=== PATIENT | female | born 1990 | race Caucasian/White ===

== ENCOUNTER 2016-11-09 13:33 | Inpatient (IN) | payer MEDICAID ==
[~2016-11-09] VITALS: Ht 157.5 cm; Wt 72.0 kg
[~2016-11-09 13:33] MED LIST: FLO4 PO
--- NOTE | 2016-11-09 14:25 | NUR ---
26Y/O FEMALE AMBULATED TO BED 2A REPORTING LLQ AND LEFT FLANK PAIN DESCRIBED PRESSURE LIKE AND CONSTANT WITH ONE EPISODE OF VOMITING COMPONENT LAB TECH. RECENT CHILD ONE MONTH AGO, DENIES VAGINAL BLEEDING AT THIS TIME. DENIES DYSURIA OR FREQUENCY. A/O X4. BREATHING EVEN AND UNLABORED. PENDING MSE.
[2016-11-09 15:09] LABS: CALCIUM 9.2 mg/dL (8.5-10.1); CARBON DIOXIDE 26.1 mmol/L (21-32); CHLORIDE SERUM 105 mmol/L (98-107); CREATININE SERUM 0.8 mg/dL (0.6-1.0); GFR1 > 60 mL/min; GLUCOSE SERUM 116 mg/dL (74-106); PLATELET COUNT 312 x10^3mcL (130-400); POTASSIUM SERUM 3.5 mmol/L (3.5-5.1); RED CELL DISTRIBUTION WIDTH 13.8 % (11.5-14.5); SODIUM SERUM 142 mmol/L (136-145)
--- NOTE | 2016-11-09 15:10 | NUR ---
PT RESTING IN POSITION OF COMFORT. CALL LIGHT IN REACH. APPEARS MORE COMFORTABLE.
[2016-11-09 15:11] LABS: BASOPHIL % 0 % (0-2)
[2016-11-09 15:19] LABS: ALBUMIN 3.8 g/dL (3.4-5.0); ALKALINE PHOSPHATASE 92 U/L (46-116); ALT/SGPT 58 U/L (14-59); AMYLASE 34 U/L (25-115); AST/SGOT 32 U/L (15-37); BILIRUBIN TOTAL 0.4 mg/dL (0.20-1.00); LIPASE 91 IU/L (73-393)
--- NOTE | 2016-11-09 15:40 | NUR ---
PAIN IMPROVED AFTER MEDICATION. RESTING IN BED. CALL LIGHT IN REACH.
[2016-11-09 16:02] LABS: UA SPECIFIC GRAVITY >=1.030 (1.005-1.035); microscopic required? YES; urine erythrocyte TRACE (NEGATIVE)
[2016-11-09] MEDS ORDERED: PRENATAL LOW IR1 TA1 PO (16:27)
--- NOTE | 2016-11-09 16:59 | NUR ---
REPORT GIVEN TO MERON WU FOR PT TO GO TO BED 252B
[2016-11-09 17:28] VITALS: BP 125/76
--- NOTE | 2016-11-09 17:33 | NUR ---
RECEIVED PT FROM ED VIA PAULA. ORIENTED PT TO ROOM AND SURROUNDINGS. IV NOTED TO DOMO CRAIG AND DEVEN. TELE 41 PLACED ON PT READING NSR. INSTRUCTED PT ON THE USE OF CALL LIGHT FOR ASSISTANCE. ENDORSED PT TO PRIMARY NURSE MERON
--- NOTE | 2016-11-09 17:45 | NUR ---
PATIENT IS SITTING UP IN BED. UP TO THE BATHROOM TO VOID. DENIES ANY PAIN OR DISCOMFORT AT THIS TIME. NS BOLUS INFUSING WELL ORDERED. IV SITE PATENT. SCD'S IN PLACE. CALL LIGHT WITHIN REACH AND PT INSTRUCTED ON USE. TELE 41 SA. NO ACUTE DISTRESS NOTED. WILL CONTINUE TO MONITOR.
[2016-11-09 17:47] LABS: MAGNESIUM 2.1 mg/dL (1.8-2.4); PHOSPHOROUS 4.1 mg/dL (2.5-4.9)
[2016-11-09 17:53] LABS: AMPHETAMINE QUAL UR NONE DETECTED (NEG <=1000)
[2016-11-09 17:56] LABS: FREE T4 0.84 ng/dL (0.76-1.46); FREE THYROXINE INDEX 2.7 ug/dL (1.4-4.5); T4(THYROXINE) 8.1 ug/dL (4.7-13.3)
[2016-11-09 17:58] LABS: T3 TOTAL 1.34 ng/mL
--- NOTE | 2016-11-09 18:13 | NUR ---
PATIENT C/O LEFT FLANK PAIN 7/10 ON THE PAIN SCALE. MEDICATED WITH MS 2MG IV BY JAX WU ORDERED. WILL MONITOR FOR EFFECT.
--- NOTE | 2016-11-09 18:45 | NUR ---
PATIENT IS IN BED, APPEARS TO BE RESTING WELL. WILL ENDORSE TO NOC NURSE.
--- NOTE | 2016-11-09 19:12 | NUR ---
PATIENT C/O HAVING A H/A NOTED TO BE CHILLING. TEMP 101.4. TYLENOL 650MG PO GIVEN AND COOLING MEASURES STARTED. WILL ENDORSE TO NOC NURSE.
--- NOTE | 2016-11-09 19:41 | NUR ---
RECEIVED PT FROM PREVIOUS SHIFT. PT A/OX4. DENIES PAIN. DENIES SOB ON RA. ICEPACKS UNDER GURJIT UPPER EXTREMITIES AND TYLENOL GIVEN FOR ELEVATED TEMP. PT RECEIVING BOLUS TO LAC, PATENT AND INFUSING WELL WITH NO S/S OF INFILTRATION. CALL LIGHT WITHIN REACH, BED IN LOW POSITION. WILL CONTINUE TO MONITOR.
--- NOTE | 2016-11-09 21:21 | NUR ---
DR VEGA INFORMED OF BP 91/48, MAP 62, HR 120, AND TEMP 102.[address] VEGA STATES HE WILL INFORM CONSULTING PHYSICIAN DR LEWIS. WILL CONTINUE TO MONITOR.
[2016-11-09 21:29] VITALS: BP 91/48
--- NOTE | 2016-11-09 22:24 | NUR ---
REPORT GIVEN TO SHANNON RN IN ICU FOR TRANSFER. PT VERBALIZES UNDERSTANDING OF NEED TO TRANSFER TO HIGHER LEVEL OF CARE. DR LEWIS AT BEDSIDE TO EXPLAIN PROCEDURE.
--- NOTE | 2016-11-09 22:35 | NUR ---
RECEIVED PATIENT FROM [facility], REPORT GIVEN BY MARIA D ALBRECHT RN. PATIENT IS ALERT AND ORIENTED, NOT IN DISTRESS, WITH DISCOMFORTS BUT NOT IN SEVERRE PAIN, SKIN WARM TO TOUCH, T 101.4/ ORALLY. SEPSIS CHECKLIST INITIATED.
[2016-11-09 22:40] VITALS: BP 93/53
--- NOTE | 2016-11-09 23:36 | NUR ---
DR. VEGA INFORMED OF RECENT LACTIC ACID 3.4. MD WILL ORDER ANOTHER LACTIC ACID DRAW.
[2016-11-10] VITALS (17 sets, daily range): BP systolic 93–120; BP diastolic 48–84; Ht 157.5 cm; Wt 72.0 kg
--- NOTE | 2016-11-10 00:43 | NUR ---
ASLEEP AT THIS TIME, EASILY AROUSABLE. RESP. EVEN AND UNLABORED. NO DISTRESS NOTED. SR ON THE MONITOR. NO COMPLAINTS NOTED AT THIS TIME. DR VEGA AT THE BEDSIDE.CONSENT FOR CENTRAL LINE INSERTION OBTAINED FROM PT. FOR INSERTION. TEMP. 100.1 ORALLLY. WILL CONTINUE TO MONITOR.
--- NOTE | 2016-11-10 01:00 | NUR ---
COMPLAINED OF HEADACHE. TEMP. 100.1, MEDICATED WITH TYLENOL 650MG PO ORDERED. WILL CONTINUE TO MONITOR.
--- NOTE | 2016-11-10 01:35 | NUR ---
DR VEGA AT THE BEDSIDE, INSERTING CENTRAL LINE. WILL CONTINUE TO MONITOR.
--- NOTE | 2016-11-10 01:37 | NUR ---
NS 1000ML IV BOLUS INFUSING AT THIS TIME. WILL CONTINUE TO MONITOR.
--- NOTE | 2016-11-10 02:11 | NUR ---
CENTRAL LINE INSERTED BY DR VEGA. X-RAY ORDERED TO CONFIRM PLACEMENT. PT AWKE, ALERT AND ORIENTED. VSS . DENIES CHEST PAIN OR ANY DISCOMFORT AT THIS TIME. WILL CONTINUE TO MONITOR.
--- NOTE | 2016-11-10 03:21 | NUR ---
TEMP. SHOWS 102.2 AT THIS TIME, PT REFUSED COOLING MEASURES , TYLENOL PO ALREADY GIVEN. DR VEGA AWARE.ICE CHIPS GIVEN PER PT,S REQUEST. 4TH BAG OF NS (1000ML) BOLUS COMPLETED. WILL CONTINUE TO MONITOR.
--- NOTE | 2016-11-10 04:26 | NUR ---
IVF CONNECTED TO RIJ PER ORDER. IVF, NS AT 150ML/HR INFUSING AT THIS TIME. SLEEPING AT THIS TIME, EASILY AROUSABLE. RESP. EVEN AND UNLABORED. NO DISTRESS MOTED. WILL CONTINUE TO MONITOR.
[2016-11-10 05:25] LABS: CALCIUM 7.7 mg/dL (8.5-10.1); CARBON DIOXIDE 19.8 mmol/L (21-32); CHLORIDE SERUM 110 mmol/L (98-107); CREATININE SERUM 0.7 mg/dL (0.6-1.0); GFR1 > 60 mL/min; GLUCOSE SERUM 110 mg/dL (74-106); POTASSIUM SERUM 3.2 mmol/L (3.5-5.1); SODIUM SERUM 142 mmol/L (136-145)
[2016-11-10 05:27] LABS: ALBUMIN 2.8 g/dL (3.4-5.0)
[2016-11-10 05:35] LABS: BASOPHIL % 0.1 % (0-2); PLATELET COUNT 228 x10^3mcL (130-400); RED CELL DISTRIBUTION WIDTH 13.6 % (11.5-14.5)
--- NOTE | 2016-11-10 06:28 | NUR ---
TEMP SHOWS 101.6 AT THIS TIME, PT REFUSED COOLING MEASURES. TYLENOL 650MG PO GIVEN. K+ 3.2, KCL 40MEQ PO GIVEN ORDERED. DENIES PAIN OR ANY DISCOMFORT AT THIS TIME. IVF, NS AT 150ML/HR, INFUSING VIA RIJ TRIPLE LUMEN. KEPT COMFORTABLE. NPO EXCEPT MEDS MAINTAINED. SR/ST ON THE MONITOR, DENIES CHEST PAIN. WILL CONTINUE TO MONITOR.
--- NOTE | 2016-11-10 07:17 | NUR ---
VOIDING FREELY. URINE STRAINED FOR STONES, NONE NOTED. REPORT GIVEN TO SEGUNDO WU. ALL QUESTIONS ANSWERED AND ALL CONCERNS ADDRESSED.
--- NOTE | 2016-11-10 07:27 | NUR ---
RECEIVED PATIENT FROM SEISMOGRAPH RECORDER NURSE PATIENT IS ALERT AND ORIENTED DENIES PAIN OR DISCOMFORT RIGHT IJ NOTED NO S/S OF INFILTRATION NOTED PATIENT IS AMBULATORY AND ABLE TO USE BEDSIDE COMMODE URINE BEING STRAINED PATIENT TO HAVE POSSIBLE CYSTOSCOPY, POSSIBLE URETERSCOPY, POSSIBLE LASER LITHOTRIPSY AND POSSIBLE URETER STENT PLACEMENT. CONSENT IS IN CHART BUT NOT SIGNED PATIENT NEEDS TO HAVE PROCEDURE EXPLAINED WILL CONTINUE TO MONITOR
--- NOTE | 2016-11-10 09:43 | NUR ---
PATIENT RESTING COMFORTABLY IN BED PATIENT ABLE TO AMBULATE PATIENT DENIES PAIN OR DISCOMFORT
--- NOTE | 2016-11-10 11:15 | NUR ---
WITH TERESITA RN NEPHROSTOMY TUBE PLACEMENT EXPLAINED TO PATIENT PATIENT CONSENTED AND CONSENT SIGNED AND PLACED IN CHART
--- NOTE | 2016-11-10 11:29 | NUR ---
PATIENT TO BE TRANSFER TO ROOM REPORT GIVEN TO MARCEL WU PATIENT TO BE TRANSPORTED VIA WHEELCHAIR V/S STABLE PATIENT DENIES PAIN OR DISCOMFORT ALL QUESTIONS ANSWERED NO CONCERNS NOTED
--- NOTE | 2016-11-10 11:45 | NUR ---
RECEIVED PT TO . ORIENT TO ROOM, MADE COMFORTABLE. VITAL SIGNS TAKEN. TEMP 103 TEMPORAL. COOLING MEASURES BEGUN. WILL MED WITH TYLENOL ORDERED. OB=[id number]. RESP 18 EVEN. BREATH SOUNDS DIMINISHED. TELE #17 SINUS TACH. DENIES CHEST DISCOMFORT. ABD SOFT, BOWEL TONES PRESENT. LBM=5-2-17. VOIDING QS. CONTINUE TO STRAIN ALL URINE. NO EDEMA. PULSES PRESENT. SCD IN PLACE. IV RIJ IN PLACE WITH IVF NORMAL SALINE 150CC/HR. REMAINS NPO FOR LEFT NEPHROSTOMY TUBE PLACEMENT. SIDE RAILS UP X2. CALL LIGHT IN REACH.
--- NOTE | 2016-11-10 12:45 | NUR ---
MED WITH TYLENOL 650MG PO ORDERED FOR TEMP. C/O FLANK DISCOMFORT 02/17 ACHING. MED WITH MORPHINE SULFATE 2MG IVP ORDERED.
--- NOTE | 2016-11-10 13:00 | NUR ---
REPORTS "PAIN BETTER NOW 09/17."
--- NOTE | 2016-11-10 13:20 | NUR ---
FREIDA IDENTIFIED. PT UP FOR CHRISTINE BATH. IV CONVERTED TO SALINE LOCK. TRANSFERRED VIA BED AT THIS TIME FOR LEFT NEPHROSTOMY TUBE PLACEMENT.
--- NOTE | 2016-11-10 14:45 | NUR ---
RETURNED TO ROOM VIA BED AWAKE AND ALERT. REPORTS "PAIN IS BETTER DOWN TO 2/10 LOWER BACK." DRESSING CDI LEFT FLANK WITH NEPHROSTOMY TUBE DRAINS RED COLOR DRAINAGE TO GRAVITY DRAINAGE BAG. IVF RESUMED NORMAL SALINE 150CC/HR. SCD APPLIED. CALL LIGHT IN REACH. WILL CHECK WITH MD FOR DIET ORDER. TEMP 97.8 TEMPORAL, ZW=802, RESP 18, JJ=390/56. PULSE OX 94% RA. CALL LIGHT IN REACH. WILL CONTINUE TO MONITOR.
--- NOTE | 2016-11-10 17:00 | NUR ---
C/O LEFT FLANK PAIN 02/17. MED WITH MORPHINE SULFATE 2MG IVP ORDERED. TEMP 101.1. COOLING MEASURES IN PLACE. DRESSING CDI LEFT FLANK. OUTPUT 300CC SINCE PLACEMENT COMPLETED. IV CONTINUES PATENT 150CC/HR.
--- NOTE | 2016-11-10 17:20 | NUR ---
REPORTS "PAIN BETTER /10." FULL LIQ DIET SERVED. ABLE TO DRINK GRAPE JUICE BUT BECAME NAUSEATED AND THREW UP. STATES "TO SWEET. MY STOMACH FEELS BETTER NOW." CALL LIGHT IN REACH.
--- NOTE | 2016-11-10 19:51 | NUR ---
SHIFT REASSESSMENT DONE.PATIENTUP IN RESTROOM AT START OF SHIFT,SAYS SHE HAD BM.ALERT AND ORIENTED.IS ENCOURAGED,JUST HAD L NEPHROSTOMY INSERTION TODAY,BUT SATS SHE STILL VOID,BAG WAS BLOOD Y FROM DAY SHIFT,CLEARING NOW/PINKISH.NS AT 100 CC/ HOUR.RIJ.3 LUMEN.TELE 17 SR/ST.CALL LIGHT IN REACH.
--- NOTE | 2016-11-10 20:52 | NUR ---
PM MEDS GIVEN,PATIENT TEMP 102.4,PATIENT ON ATB,COOLING MEASURES GIVEN.WILL CHECKED FOR TYLENOL.
--- NOTE | 2016-11-10 20:58 | NUR ---
PATIENT TYLENOL NOT DUE YET,GIVEN TORADOL PO AT THIS TIME.
--- NOTE | 2016-11-11 01:47 | NUR ---
PATIENT LEFT NEPHROSTOMY EMPTIED WITH 600 CC PINKISH URINE.ALSO VOIDING PINKISH URINE.400 CC.WILL TOTAL IT AT THE END OF THE SHIFT.
--- NOTE | 2016-11-11 04:23 | NUR ---
PATIENT TEMP RECHECKED AT THIS TIME 99.2,COOLING MEASURES WAS USED LAST NIGHT.CONTINOUS ON ANTIBIOTIC,IVF AT 150 CC/ HOUR,DRINKING WATER WELL.
--- NOTE | 2016-11-11 04:25 | NUR ---
PAIN MED WAS GIVEN AT 0222,SAYS PAIN IS 8/10.DR BADILLO UPDATED ABOUT PATIENT FEVER,NOW 99.2,LAST NOC WAS NOT AWARE OF IT.
--- NOTE | 2016-11-11 04:26 | NUR ---
PATIENT UP IN RESTROOM,HEART RATE ST,NO SYMPTOMS.URINE STILL BEING STRAINED.
[2016-11-11 04:32] VITALS: BP 118/66
--- NOTE | 2016-11-11 05:53 | NUR ---
TELE 17 DISCONTINUED,PATIENT MED SURG STATUS.
[2016-11-11 06:39] LABS: CALCIUM 8.3 mg/dL (8.5-10.1); CARBON DIOXIDE 19.9 mmol/L (21-32); CHLORIDE SERUM 109 mmol/L (98-107); CREATININE SERUM 0.7 mg/dL (0.6-1.0); GFR1 > 60 mL/min; GLUCOSE SERUM 84 mg/dL (74-106); POTASSIUM SERUM 3.2 mmol/L (3.5-5.1); SODIUM SERUM 143 mmol/L (136-145)
[2016-11-11 06:54] LABS: BASOPHIL % 0.2 % (0-2); PLATELET COUNT 190 x10^3mcL (130-400); RED CELL DISTRIBUTION WIDTH 14.5 % (11.5-14.5)
--- NOTE | 2016-11-11 07:56 | NUR ---
PT C/O LEFT FLANK DISCOMFORT "ACHING PAIN 12/18." MED WITH TORADOL 10MG PO ORDERED. WILL CONTINUE TO MONITOR.
--- NOTE | 2016-11-11 08:00 | NUR ---
AWAKE AND ALERT. TEMP 102.2 ORAL. RESP 18 EVEN. BREATH SOUNDS CLEAR. NO COUGH OR SOB. PULSE OX 97% RA. ABD SOFT, BOWEL TONES PRESENT. LEFT FLANK DRESSING CDI WITH LEFT NEPHROSTOMY TUBE PATENT DRAINING PALE REDDISH COLOR DRAINAGE. CONTINUE TO STRAIN ALL URINE FOR STONE. UP TO BATHROOM VOIDED 600CC EAMON REDDISH COLOR URINE. STRAIN ALL UX FOR STONE. REPORTS "HURTS ABOUT 6/10 RIGHT NOW." NO EDEMA. PULSES PRESENT. SCD IN PLACE. RIJ IN PLACE WITH IVF NORMAL SALINE 150CC/HR. SIDE RAILS UP X2. CALL LIGHT IN REACH.
--- NOTE | 2016-11-11 08:20 | NUR ---
DR HARMON AND MEDICAL TEAM IN ON ROUNDS. DISCUSSED KIDNEY STONE, PURPOSE OF NEPHROSTOMY TUBE AND TO CONTINUE TO STRAIN UX FOR STONE. CONTINUE IV ANTIBIOTICS ORDERED. UPDATED WITH ORAL TEMP 102.2. PT VERBALIZED UNDERSTANDING.
--- NOTE | 2016-11-11 08:30 | NUR ---
PT CONTINUES TO EXPRESS THAT HAS DISCOMFORT LEFT FLANK AREA "ACHING 02/17." MED WITH MORPHINE SULFATE 2MG IVP ORDERED.
--- NOTE | 2016-11-11 09:00 | NUR ---
PT REPORTS "FEELING BETTER, PAIN DOWN TO 2/10." GENT TROUGH LEVEL DRAWN.
--- NOTE | 2016-11-11 10:00 | NUR ---
GENT 80MG IVPB STARTED. PEAK ORDERED FOR 1100. PT SLEEPING AT THIS TIME.
[2016-11-11 10:32] VITALS: BP 116/64
--- NOTE | 2016-11-11 12:00 | NUR ---
PT RESTING. DENIES NEED FOR PAIN MED AT THIS TIME. GENT TROUGH LEVEL 0.6, PEAK=3.5. NO CHANGE IN GENT DOSE TO CONTINUE IV Q8HR. CONTINUE TO EMPTY LEFT NEPHROSTOMY TUBE NEEDED. VOIDING QS STRAINING ALL URINE.
--- NOTE | 2016-11-11 17:15 | NUR ---
PT RESTING. CONTINUES TO DENY PAIN AT THIS TIME. NEPHROSTOMY TUBE CULTURE VERIFIED WITH DR HERRERA. UPDATED WITH PT STATUS AND TEMP 99. IV CONTINUES PATENT. CALL LIGHT IN REACH.
[2016-11-11 17:25] VITALS: BP 125/74
--- NOTE | 2016-11-11 19:10 | NUR ---
DR LOCKHART IN TO SPEAK WITH PT. UP TO BATHROOM VOIDED. LEFT NEPHROSTOMY DRESSING REMOVED. CULTURE TAKEN. NEW DRESSING APPLIED USING STERILE TECHNIQUE. C/O MILD DISCOMFORT 12/18. MED WITH NORCO ES ORDERED.
--- NOTE | 2016-11-11 19:30 | NUR ---
PT ALERT/ORIENTED X4. PT C/O PAIN TO LF FLANK, PT WAS MEDICATED BY DAY NURSE (SEE EMAR). PT HAS NEPHROSTOMY NOTED TO LF SIDE WITH RED/YELLOW DRAINAGE, DRESSING; CDI. PT ASSESSED; SEE NSG FLOWSHEET. SAFETY REINFORCED;SEE EDUCAT SHEET. WILL CONTINUE TO MONITOR.
[2016-11-11 21:55] VITALS: BP 116/86
--- NOTE | 2016-11-11 22:30 | NUR ---
PT AWAKE.NO C/O PAIN. WILL CONTINUE TO MONITOR.
--- NOTE | 2016-11-12 01:22 | NUR ---
RECHECK ON TEMP:98.5. PT NO C/O PAIN. WILL CONTINUE TO MONITOR.
--- NOTE | 2016-11-12 02:52 | NUR ---
PT SLEEPING. NO DISTRESS NOTED. WILL CONTINUE TO MONITOR.
[2016-11-12 04:53] VITALS: BP 119/78
--- NOTE | 2016-11-12 05:11 | NUR ---
PT SLEPT IN MODERATE INTERVALS THROUGHOUT THE NIGHT. WILL CONTINUE TO MONITOR.
[2016-11-12 06:12] LABS: CALCIUM 8.1 mg/dL (8.5-10.1); CARBON DIOXIDE 20.7 mmol/L (21-32); CHLORIDE SERUM 110 mmol/L (98-107); CREATININE SERUM 0.6 mg/dL (0.6-1.0); GFR1 > 60 mL/min; GLUCOSE SERUM 87 mg/dL (74-106); POTASSIUM SERUM 3.2 mmol/L (3.5-5.1); SODIUM SERUM 143 mmol/L (136-145)
[2016-11-12 07:02] LABS: BASOPHIL % 0.4 % (0-2); PLATELET COUNT 187 x10^3mcL (130-400); RED CELL DISTRIBUTION WIDTH 13.5 % (11.5-14.5)
--- NOTE | 2016-11-12 07:45 | NUR ---
AWAKE AND ALERT. TEMP 99.5. RESP 18 EVEN. BREATH SOUNDS CLEAR. PULSE OX 96% RA. USES INCENTIVE SPIROMETER ENCOURAGED 10 BREATHS PER HOUR. GOOD RETURN DEMO. ABD SOFT, BOWEL TONES PRESENT. HAD BM THIS AM. CONTINUES TO URINATE WELL WITH GOOD URINE OUTPUT YELLOW IN COLOR FROM LEFT NEPHROSTOMY TUBE. DRESSING LEFT FLANK CDI. INSTRUCTED PT WITH USE AND CARE OF NEPHROSTOMY TUBE AND BAG. ADDITIONAL SUPPLIES GIVEN FOR HOME CARE. REPORTS "WHEN WIPES AFTER URINATING NOTICES SOME MUCOUS AND REDDISH IN COLOR." S/P 6 WEEKS AGO. IV RIJ INPLACE WITH IVF NORMAL SALINE 150CC/HR. SALINE LOCK LFA PATENT. DENIES PAIN. NO EDEMA. PULSES PRESENT. SCD IN PLACE. SIDE RAILS UP X2. CALL LIGHT IN REACH.
--- NOTE | 2016-11-12 08:00 | NUR ---
DR HARMON AND MEDICAL TEAM IN ON ROUNDS. CHARGE AND PRIMARY NURSE PRESENT. REVIEWED PLAN FOR DISCHARGE HOME TODAY. TO REMOVE RIJ THIS AM. PT VERBALIZED UNDERSTANDING.
[2016-11-12 09:40] VITALS: BP 112/76
--- NOTE | 2016-11-12 12:01 | NUR ---
PT C/O "DULL ACHE AROUND THE TUBE." DECLINES NARCOTICS. AGREEABLE TO TAKE TYLENOL. MED WITH TYLENOL 650MG PO ORDERED. REVIEWED EMPTYING NEPHROSTOMY BAG. GOOD RETURN DEMO AND TECHNIQUE. AMBULATES WELL.
[2016-11-12] MEDS ORDERED: LAC PO ×2 (12:25→13:55)
[2016-11-12] MEDS ORDERED: LEVAQUIN750 MG PO ×2 (12:25→13:55)
[2016-11-12] MEDS ORDERED: TOR10 PO ×2 (12:26→13:55)
[2016-11-12 12:38] VITALS: BP 112/76
--- NOTE | 2016-11-12 14:00 | NUR ---
SALINE LOCK REMOVED LAC CATH TIP INTACT. RIJ REMOVED CATH TIP INTACT. SITE HELD X 3 MIN. NO BLEEDING. 2X2 APPLIED. LEFT NEPHROSTOMY DRESSING REMOVED. DC PHOTO TAKEN. USING STERILE TECHNIQUE NEW DRESSING APPLIED. COVERED WITH TEGADERM. PT INDEPENDANT WITH EMPTYING NEPHROSTOMY BAG. DENIES PAIN AT THIS TIME. DR HERRERA COMPLETING DC INFORMATION PACKET.
[2016-11-12] MEDS ORDERED: FLO4 PO (14:43)
--- NOTE | 2016-11-12 14:45 | NUR ---
DISCHARGE PACKET COMPLETED. DR HERRERA ELECTRONIC FAX FOR PHARMACY MEDS INCLUDING FLOMAX. PT AND INSTRUCTED WITH HOME CARE OF NEPHROSTOMY TUBE, CALLING TO VERIFY FOLLOWUP APPT AND DC MEDS. VERBALIZED UNDERSTANDING. DC TO PRIVATE CAR WITH BELONGINGS.
== END 2016-11-12 14:45 | disposition home or self-care (01) | DRG 710 ==
LOC: ED 13:33 → DU 16:05 → IC 16:05 → MU 16:05 → DU 17:06 → IC 22:36 → DU 11-10 10:45 → MU 11-11 05:50
PROVIDERS: Emergency Medicine; Family Medicine; Radiology Diagnostic Radiology; ADMIT Family Medicine
PROC: 05HM33Z Insertion of Infusion Device into Right Internal Jugular Vein, Percutaneous Approach (ICD-10-PCS; 2016-11-10)
PROC: B543ZZA Ultrasonography of Right Jugular Veins, Guidance (ICD-10-PCS; 2016-11-10)
PROC: 0T143JD Bypass Left Kidney Pelvis to Cutaneous with Synthetic Substitute, Percutaneous Approach (ICD-10-PCS; principal; 2016-11-10 13:30)
DX: A41.51 Sepsis due to Escherichia coli [E. coli] (principal); E43 Unspecified severe protein-calorie malnutrition; N13.6 Pyonephrosis; B96.20 Unspecified Escherichia coli [E. coli] as the cause of diseases classified elsewhere; R31.29 Other microscopic hematuria; D64.9 Anemia, unspecified; E78.5 Hyperlipidemia, unspecified; Z87.442 Personal history of urinary calculi; Z68.28 Body mass index [BMI] 28.0-28.9, adult
CPT/HCPCS: 36556; 80307; 83880; 84439; C1729; C1769; C1884; J0696; J1170; J1580; J1642; J1885; J2001; J2250; J2270; J3010; J7030; J7040; Q0092; Q9967

== ENCOUNTER 2016-12-02 12:53 | Emergency (ER) | payer MEDICAID ==
[~2016-12-02 12:53] MED LIST changes: +LAC PO; +LEVAQUIN750 MG PO; +PRENATAL LOW IR1 TA1 PO; +TOR10 PO
[2016-12-02 13:15] VITALS: BP 125/73
== END 2016-12-02 15:57 | disposition home or self-care (01) ==
LOC: ED 12:53
DX: T83.89XA Other specified complication of genitourinary prosthetic devices, implants and grafts, initial encounter (principal); N13.2 Hydronephrosis with renal and ureteral calculous obstruction; Y92.89 Other specified places as the place of occurrence of the external cause